=== PATIENT | female | born 1990 | race Caucasian/White ===

== ENCOUNTER 2017-05-13 21:15 | Emergency (ER) | payer BC, MEDICAID ==
[2017-05-13 22:09] VITALS: BP 127/68
--- NOTE | 2017-05-13 22:17 | EDM.PDOC ---
ED HPI GENERAL MEDICAL PROBLEM - General Chief Complaint: Lower Extremity Injury/Pain Stated Complaint: [id number] POSSIBLE BROKEN ANKLE Time Seen by Provider: 05/13/17 22:15 Source of Information: Reports: Patient History Limitations: Reports: No Limitations - History of Present Illness INITIAL COMMENTS - FREE TEXT/NARRATIVE: twisted ankle when slipped dwon some steps @x10pm Right Ankle Pain Score (Numeric/FACES): 8 - Related Data Allergies Allergy/AdvReac Type Severity Reaction Status Date / Time No Known Allergies Allergy Verified 05/13/17 21:58 Home Meds: Home Meds Levonorgestrel [Mirena] 1 each VAG ASDIRECTED 05/13/17 [History] Varenicline Tartrate [Chantix] 1 tab PO ASDIRECTED 05/13/17 [History] Past Medical History [employer] History: Reports: Other (See Below) Other OB/BYN History: Musculoskeletal History: Reports: Other (See Below) Other Musculoskeletal History: scoliosis Neurological History: Reports: Migraines - Past Surgical History GI Surgical History: Reports: Appendectomy Musculoskeletal Surgical History: Reports: Other (See Below) Other Musculoskeletal Surgeries/Procedures:: scoliosis surgery Social & Family History - Tobacco Use Smoking Status *Q: Current Every Day Smoker Years of Tobacco use: 10 Packs/Tins Daily: 0.5 - Recreational Drug Use Recreational Drug Use: No Review of Systems - Review of Systems Review Of Systems: ROS reveals no pertinent complaints other than HPI. ED EXAM, GENERAL - Physical Exam Exam: See Below Exam Limited By: No Limitations General Appearance: Alert, WD/WN, Mild Distress, Other (discomfort) Ears: Hearing Grossly Normal Throat/Mouth: Normal Voice, No Airway Compromise Head: Atraumatic Neck: Non-Tender, Full Range of Motion Respiratory/Chest: No Respiratory Distress Cardiovascular: Regular Rate, Rhythm GI/Abdominal: Soft, Non-Tender Extremities: Limited Range of Motion, Other (right ankle swollen tender lateral> , NV wnl, gait limited to pain) Neurological: Alert, Oriented, Normal Cognition, No Motor/Sensory Deficits Psychiatric: Normal Affect, Normal Mood Skin Exam: Warm, Dry, Normal Color Lymphatic: No Adenopathy Course - Vital Signs Last Recorded V/S: Last Vital Signs Temp 36.3 C 05/13/17 22:04 Pulse 99 05/13/17 22:04 Resp 18 05/13/17 22:04 BP 127/68 05/13/17 22:04 Pulse Ox 100 05/13/17 22:04 - Re-Assessments/Exams Free Text/Narrative Re-Assessment/Exam: 05/13/17 22:48 results discussed with pt. Departure - Departure Time of Disposition: 22:48 Disposition: Home, Self-Care 01 Condition: Good Clinical Impression: Ankle sprain Qualifiers: Encounter type: initial encounter Involved ligament of ankle: calcaneofibular ligament Laterality: right Qualified Code(s): S93.411A - Sprain of calcaneofibular ligament of right ankle, initial encounter - Discharge Information Instructions: Ankle Sprain, [id number] Forms: ED Department Discharge Additional Instructions: 1) wear ESTEBAN for comfort 2) use crutches 3) elevate leg as much as possible next 48 hours 4) ice intermittently for swelling 5) see clinic for possible MRI SCAN if not significantly better in 48 hours
== END 2017-05-13 23:05 | disposition home or self-care (01) ==
LOC: DL.ED 21:15
DX: S93.411A Sprain of calcaneofibular ligament of right ankle, initial encounter (principal); F17.210 Nicotine dependence, cigarettes, uncomplicated; Z90.49 Acquired absence of other specified parts of digestive tract; Z98.890 Other specified postprocedural states; X50.1XXA Overexertion from prolonged static or awkward postures, initial encounter
CPT/HCPCS: 73610-RT; 99283